=== PATIENT | male | born 1950 | race Caucasian/White ===

== ENCOUNTER 2021-09-20 06:12 | Day surgery (SDC) | payer MEDICARE ==
[2021-09-13 15:50] LABS: CLARITY,URINE CLOUDY (Clear); COLOR,URINE YELLOW (Yellow); GLUCOSE, URINE NEGATIVE (Neg); KETONES,URINE NEGATIVE (Neg); LEUKOCYTE ESTERASE ,URINE NEGATIVE (Neg); NITRITES, URINE NEGATIVE (Neg); OCCULT BLOOD,URINE NEGATIVE (Neg); PH,URINE 5.5 (4.8-8.0); PROTEIN,URINE TRACE mg/dl (Neg)
[2021-09-13 15:51] LABS: BASOPHILS % (AUTO) 0.4 % (0-1); EOSINOPHILS # (AUTO) 0.1 X10'3 (0-0.9); LYMPHOCYTES # (AUTO) 1.4 X10'3 (1.1-4.8); MEAN CORPUSCULAR HEMOGLOBIN 29.5 PG (27.0-31.0); MEAN PLATELET VOLUME 7.7 FL (7.4-10.4); MONOCYTES # (AUTO) 0.5 X10'3 (0-0.9); PRE OP HEMOGLOBIN 11.1 g/dL (14.0-17.9); RED BLOOD COUNT 3.77 X10'6 (4.70-6.10)
[2021-09-13 15:52] LABS: EOSINOPHILS % (AUTO) 1.3 % (0-6); LYMPHOCYTES % (AUTO) 29.5 % (21-51); MEAN CORPUSCULAR VOLUME 86.7 FL (78-98); NEUTROPHILS # (AUTO) 2.7 X10'3 (1.8-7.7); NEUTROPHILS % (AUTO) 57.8 % (42-75); PRE OP HEMATOCRIT 32.7 % (42.0-52.0); PRE OP PLATELET COUNT 233 X10'3 (140-440); RED CELL DISTRIBUTION WIDTH 14.8 % (11.5-14.5)
[2021-09-13 15:59] LABS: ALBUMIN 2.9 G/DL (3.4-5.0); ALBUMIN/GLOBULIN RATIO 0.9 (1.1-1.5); ALKALINE PHOSPHATASE 93 IU/L (46-116); BLOOD UREA NITROGEN 11 MG/DL (7-18); BUN/CREATININE RATIO 14.5 (5.4-32.0); CALCIUM 8.4 MG/DL (8.5-10.1); CHLORIDE 105 MMOL/L (99-107); CREATININE 0.76 MG/DL (0.60-1.10); PRE OP ALT 25 U/L (30-65); PRE OP ANION GAP 4 (8-16); PRE OP AST 18 U/L (10-37); PRE OP BILIRUB, TOTAL 0.5 MG/DL (0.0-1.0); PRE OP GLUCOSE 98 MG/DL (70-104); PRE OP POTASSIUM 3.9 MMOL/L (3.4-5.1); PRE OP SODIUM 141 MMOL/L (135-145); TOTAL CARBON DIOXIDE 31.7 MMOL/L (24-32); TOTAL PROTEIN 6.2 G/DL (6.4-8.2); eGFR > 90 ML/MIN
[2021-09-13 16:00] LABS: UA COLLECTION TYPE VOIDED
[2021-09-13 16:04] LABS: MUCUS STRANDS MANY /LPF (Neg)
[2021-09-13 16:09] LABS: BACTERIA,URINE FEW /HPF (Neg)
[2021-09-13 16:10] LABS: RBC,URINE 0-2 /HPF (0-2)
[2021-09-13 16:12] LABS: RENAL CELLS, URINE FEW /HPF; SQUAMOUS EPITHELIAL CELL,UR FEW /LPF (FEW); WBC,URINE 0-4 /HPF (0-4)
[2021-09-13 16:22] LABS: CAL OXALATE CRYSTALS 3+ /HPF (NEGATIVE); TRANSITIONAL EPI CELLS,URINE FEW /HPF
[2021-09-13 16:23] LABS: FINE GRANULAR CAST 0-3 /LPF (NEGATIVE)
[2021-09-13 17:03] LABS: BURR CELLS FEW; PLATELET ESTIMATE NORMAL; SCHISTOCYTES FEW
[~2021-09-20] VITALS: Ht 193 cm; Wt 56.7 kg
[2021-09-20] VITALS (13 sets, daily range): BP systolic 127–149; BP diastolic 79–90
[~2021-09-20 06:12] MED LIST: NO HOME MEDS; ceFAZolin inj. 2,000 MG in dextrose 5%-water 100 ML IV ONE; famotidine 20mg tablet PO ONE; ringers solution, lacted 1,000 ML IV SCH
[2021-09-20] MEDS ORDERED: fentaNYL/PF 50MCG/1 ML 2ML syringe IV PRN ×2 (07:20)
[2021-09-20] MEDS ORDERED: morphine 4 MG/ML inj SYRINge IV PRN (07:20)
[2021-09-20] MEDS ORDERED: ondansetron/PF 4mg/2ml inj IV PRN (07:20)
[2021-09-20] MEDS ORDERED: morphine 2 MG/ML inj. syringe IV PRN (07:20)
[2021-09-20] MEDS ORDERED: ringers solution, lacted 1,000 ML IV SCH (07:20)
[2021-09-20] MEDS ORDERED: hydrALAZINE 20mg/ml inj. IV PRN (07:20)
[2021-09-20] MEDS ORDERED: labetalol 20mg/4ml (5mg/ml) syringe IV PRN (07:20)
[2021-09-20] MEDS ORDERED: BUPIVAcaine/PF 2.5 mg/ml (0.25%) 30ml vial ONE (09:00)
[2021-09-20] MEDS ORDERED: neostigmine methylsulfate 1 MG/ML 10ml vial ONE (12:22)
[2021-09-20] MEDS ORDERED: sevoflurane 250ml liquid IH ONE (12:22)
[2021-09-20] MEDS ORDERED: fentaNYL/PF 50MCG/1 ML 2ML syringe ONE (12:25)
[2021-09-20] MEDS ORDERED: midazolam 1 mg/ML 2ml injection ONE (12:26)
[2021-09-20] MEDS ORDERED: rocuronium 10mg/ml inj IV ONE (12:32)
[2021-09-20] MEDS ORDERED: ondansetron/PF 4mg/2ml inj ONE (12:32)
[2021-09-20] MEDS ORDERED: LIDOcaine 1%/PF 5ML 10 MG/ML VIAL ONE (12:32)
[2021-09-20] MEDS ORDERED: propofol inj 20 ML IV ONE (12:32)
[2021-09-20] MEDS ORDERED: glycopyrrolate 0.2mg/ml inj ONE (12:32)
[2021-09-20] MEDS ORDERED: dexamethasone sod phosphate 4mg/ml inj. ONE (12:36)
--- NOTE | 2021-09-20 14:05 | NUR ---
Received from OR via STRETCHER, accompanied by Anesthesiologist RUSTAM and report given by Anesthesiolgist. PT HAS AN ORAL AIRWAY INPLACE, SNORING RESPIRATIONS, DROWSY, NOT RESPONDING TO VERBAL STIMULATION VITAL SIGNS STABLE
--- NOTE | 2021-09-20 15:30 | NUR ---
PT WAS ABLE TO URINATE APPROX 200 CC WITHOUT DIFFICULTY CALLED DAUGHTER DYLAN AND ASK IF PT COULD STAY WITH HER OR SOMEONE COULD STAY WITH PT THIS EVENING. HE IS SLIGHTLY OFF BALANCE AND HOLDING ON TO FURNITURE TO AMBULATE, HE LIVES ALONE. SHE STATES THAT EITHER HER OR HER BROTHER WOULD STAY WITH PT THIS EVENING
[2021-09-20] MEDS ORDERED: HYDROcodone/acetaminophen 5mg/325mg tablet PO ONE (15:40)
== END 2021-09-20 16:10 | disposition home or self-care (01) ==
LOC: PAS 06:12
PROVIDERS: ATTEND Surgery
DX: K40.20 Bilateral inguinal hernia, without obstruction or gangrene, not specified as recurrent (principal); E11.9 Type 2 diabetes mellitus without complications; E78.5 Hyperlipidemia, unspecified; I10 Essential (primary) hypertension; J44.9 Chronic obstructive pulmonary disease, unspecified; F17.210 Nicotine dependence, cigarettes, uncomplicated; Z20.822 Contact with and (suspected) exposure to COVID-19; Z72.89 Other problems related to lifestyle; Z79.899 Other long term (current) drug therapy; Z80.9 Family history of malignant neoplasm, unspecified
CPT/HCPCS: 36415; 49650; 80053; 81001; 82948; 85025; 93005; C1758; C1781; J0690; J1100; J2250; J2405; J2704; J2710; J3010; J3490; J7030; J7060; J7120; U0003; U0005; Z7506; Z7508; Z7512; 85008; A4215; A4618